=== PATIENT | female | born 1970 | race Hispanic/Latino ===

== ENCOUNTER 2018-02-25 15:04 | Emergency (ER) | payer SELFPAY ==
[2018-02-25 15:57] LABS: HEMATOCRIT 30.7 % (36-48); LYMPHOCYTES % (AUTO) 26.6 % (21.0-51.0); MEAN CORPUSCULAR HEMOGLOBIN 18.8 pg (27.0-33.0); MEAN CORPUSCULAR HGB CONC 30.2 g/dL (32.0-36.0); MEAN CORPUSCULAR VOLUME 62.4 fL (79-99); MONOCYTES % (AUTO) 6.8 % (3.0-13.0); NEUTROPHILS % (AUTO) 63.6 % (40.0-77.0); PLATELET COUNT (AUTO) 231 K/uL (130-400); RED BLOOD CELL COUNT(AUTO) 4.92 MIL/uL (4.00-5.50); RED CELL DISTRIBUTION WIDTH 19.2 % (11.0-15.5); WHITE BLOOD COUNT (AUTO) 4.8 K/uL (4.8-10.8)
[2018-02-25 15:58] LABS: APPEARANCE,URINE Clear (CLEAR); BILIRUBIN,URINE Negative (NEGATIVE); COLOR,URINE Yellow (YELLOW); GLUCOSE, URINE (UA) >=1000 mg/dL (NEGATIVE); KETONES,URINE Negative (NEGATIVE); LEUKOCYTE ESTERASE ,URINE Negative (NEGATIVE); NITRATE,URINE Negative (NEGATIVE); OCCULT BLOOD,URINE Moderate (NEGATIVE); PH,URINE 5.5 (5.0-8.0); PROTEIN,URINE Negative (NEGATIVE)
[2018-02-25 16:04] LABS: AMPHET/METH SCREEN,URINE NEGATIVE (NEGATIVE); BARBITURATE SCREEN, URINE NEGATIVE (NEGATIVE); BENZODIAZEPINES SCREEN,URINE NEGATIVE (NEGATIVE); CANNABINOID SCREEN,URINE NEGATIVE (NEGATIVE); COCAINE SCREEN,URINE NEGATIVE (NEGATIVE); OPIATE SCREEN,URINE NEGATIVE (NEGATIVE); PHENCYCLIDINE SCREEN,URINE NEGATIVE (NEGATIVE)
[2018-02-25 16:09] LABS: INR 0.94 (0.85-1.15); PARTIAL THROMBOPLASTIN TIME 23.1 SEC (26.3-35.5); PROTHROMBIN TIME 9.9 SEC (9.6-11.6)
[2018-02-25 16:17] LABS: BACTERIA,URINE None Seen /HPF (None Seen); RBC,URINE 26-50 /HPF (0-1); SQUAMOUS EPITHELIAL CELL,UR 0-2 /HPF (0-2); WBC,URINE 0-1 /HPF (0-1)
[2018-02-25 16:21] LABS: ALBUMIN 3.7 g/dL (3.5-5.0); BILIRUBIN,TOTAL 0.3 mg/dL (0.2-1.0); CREATINE KINASE MB 0.5 ng/mL (0.5-3.6); CREATININE 0.9 mg/dL (0.5-1.5); POTASSIUM 3.9 mmol/L (3.5-5.1); TOTAL PROTEIN, SERUM 7.3 g/dL (6.0-8.3)
[2018-02-25] MEDS ORDERED: SODIUM CHLORIDE 0.9% 1000ML 1,000 ML IV ONE (16:32)
[2018-02-25] MEDS ORDERED: INSULIN HUMULIN R 100 UNIT/ML 3ML ONE (16:33)
== END 2018-02-25 18:02 | disposition home or self-care (01) ==
LOC: EDH 15:04
DX: E11.65 Type 2 diabetes mellitus with hyperglycemia (principal); R42 Dizziness and giddiness; I10 Essential (primary) hypertension; Z90.49 Acquired absence of other specified parts of digestive tract; Z98.890 Other specified postprocedural states; Z87.891 Personal history of nicotine dependence
CPT/HCPCS: 36415; 80053; 80305; 81001; 82550; 82553; 82948; 84443; 84484; 85025; 85610; 85730; 93005; 96361; 96374; 99285; J1815; J7030

== ENCOUNTER 2019-10-26 11:32 | Inpatient (IN) | payer SELFPAY ==
[~2019-10-26] VITALS: Ht 157.5 cm; Wt 62.7 kg
[2019-10-26] MEDS ORDERED: ONDANSETRON HCL 4 MG/2 ML VIAL ONE (12:00)
[2019-10-26 12:20] LABS: BASOPHILS % (AUTO) 0.5 % (0.0-5.0); EOSINOPHILS % (AUTO) 1.8 % (0.0-8.0); HEMATOCRIT 32.3 % (36-48); LYMPHOCYTES % (AUTO) 15.9 % (21.0-51.0); MEAN CORPUSCULAR HEMOGLOBIN 19.1 pg (27.0-33.0); MEAN CORPUSCULAR HGB CONC 27.6 g/dL (32.0-36.0); MEAN CORPUSCULAR VOLUME 69.2 fL (79-99); MONOCYTES % (AUTO) 6.7 % (3.0-13.0); NEUTROPHILS % (AUTO) 74.9 % (40.0-77.0); PLATELET COUNT (AUTO) 202 K/uL (130-400); RED BLOOD CELL COUNT(AUTO) 4.67 MIL/uL (4.00-5.50); WHITE BLOOD COUNT (AUTO) 5.5 K/uL (4.8-10.8)
[2019-10-26 12:31] LABS: CREATININE 0.4 mg/dL (0.5-1.5); POTASSIUM 4.1 mmol/L (3.5-5.1)
[2019-10-26] MEDS ORDERED: FAMOTIDINE/PF 20 MG/2 ML VIAL IV ONE (12:33)
[2019-10-26] MEDS ORDERED: SODIUM CHLORIDE 0.9% 1000ML 1,000 ML IV ONE ×2 (12:34→17:16)
[2019-10-26 12:35] LABS: ALBUMIN 3.4 g/dL (3.5-5.0); BILIRUBIN,TOTAL 0.4 mg/dL (0.2-1.0); TOTAL PROTEIN, SERUM 7.2 g/dL (6.0-8.3)
[2019-10-26 12:38] LABS: APPEARANCE,URINE Clear (CLEAR); BILIRUBIN,URINE Negative (NEGATIVE); COLOR,URINE Yellow (YELLOW); GLUCOSE, URINE (UA) TRACE mg/dL (NEGATIVE); KETONES,URINE Trace mg/dL (NEGATIVE); LEUKOCYTE ESTERASE ,URINE Negative (NEGATIVE); NITRATE,URINE Negative (NEGATIVE); OCCULT BLOOD,URINE Trace (NEGATIVE); PROTEIN,URINE POS 2+ mg/dL (NEGATIVE)
[2019-10-26 12:46] LABS: AMPHET/METH SCREEN,URINE NEGATIVE (NEGATIVE); BARBITURATE SCREEN, URINE NEGATIVE (NEGATIVE); BENZODIAZEPINES SCREEN,URINE NEGATIVE (NEGATIVE); CANNABINOID SCREEN,URINE NEGATIVE (NEGATIVE); COCAINE SCREEN,URINE POSITIVE (NEGATIVE); OPIATE SCREEN,URINE NEGATIVE (NEGATIVE); PHENCYCLIDINE SCREEN,URINE NEGATIVE (NEGATIVE)
[2019-10-26 12:54] LABS: BACTERIA,URINE None Seen /HPF (None Seen); RBC,URINE 0-1 /HPF (0-1); WBC,URINE 0-1 /HPF (0-1)
[2019-10-26] MEDS ORDERED: HYOSCYAMINE SULFATE 0.125 MG TAB.SUBL SL ONE ×2 (14:10→14:11)
[2019-10-26] MEDS ORDERED: KETOROLAC TROMETHAMINE 30MG/ML ONE (15:30)
[2019-10-26] MEDS ORDERED: HYDRALAZINE HCL 20 MG/ML VIAL IV PRN (17:00)
[2019-10-26] MEDS ORDERED: HYDROCODONE/ACETAMINOPHEN 5/325 MG TAB PO PRN (17:00)
[2019-10-26] MEDS ORDERED: HYDROCODONE/ACETAMINOPHEN 5/325 MG TAB ONE (17:15)
[2019-10-26 18:30] VITALS: BP 167/94
[2019-10-26 20:00] VITALS: BP 150/92
[2019-10-26] MEDS: FAMOTIDINE/PF 20 MG/2 ML VIAL IV SCH (21:17)
[2019-10-26] MEDS: ZOSYN 3.375GM+NS 50ML 50 ML IV SCH (21:17)
[2019-10-26] MEDS: INSULIN GLARGINE 100 UNITS/ML 10 ML VIAL SQ SCH (21:17)
[2019-10-26] MEDS: HYDROCODONE/ACETAMINOPHEN 5/325 MG TAB PO PRN (21:22)
[2019-10-26] MEDS ORDERED: ONDANSETRON HCL 4 MG/2 ML VIAL IVP PRN (22:15)
[2019-10-26] MEDS: SODIUM CHLORIDE 0.9% 1000ML 1,000 ML IV SCH (23:11)
[2019-10-26] MEDS: HYDROMORPHONE HCL 2 MG/ML VIAL IVP PRN (23:12)
[2019-10-27 00:02] VITALS: BP 107/68
[2019-10-27 04:00] VITALS: BP 114/70
[2019-10-27] MEDS: ZOSYN 3.375GM+NS 50ML 50 ML IV SCH ×3 (04:22→21:13)
[2019-10-27] MEDS: HYDROMORPHONE HCL 2 MG/ML VIAL IVP PRN (04:27)
[2019-10-27 08:00] VITALS: BP 123/81
[2019-10-27] MEDS: FAMOTIDINE/PF 20 MG/2 ML VIAL IV SCH ×2 (08:53→21:13)
[2019-10-27] MEDS: SODIUM CHLORIDE 0.9% 1000ML 1,000 ML IV SCH (08:54)
[2019-10-27] MEDS: ENOXAPARIN SODIUM 40 MG/0.4 ML SYRINGE SQ SCH (08:54)
[2019-10-27] MEDS ORDERED: HYDROMORPHONE HCL 0.5 MG/0.5 ML ML ONE (09:02)
[2019-10-27 11:47] VITALS: BP 142/76
--- NOTE | 2019-10-27 13:01 | NUR ---
D/C PLAN CM spoke to pt regarding d/c planning. Pt is ind. lives alone. Denies having any DME at home. Pt given [employer] packet. Pt is on waiting list for [facility]. Plan to home. No needs verbalized or identified. Addendum: 10/27/19 at 1303 by REAGAN DA SILVA CM Amended: Links added.
--- NOTE | 2019-10-27 15:54 | NUR ---
Dr Cradnall evaluated the pt on bedside and educated about her condition and the possibility of getting surgery tomorrow. Pt understand. Dr. Crandall Also order to cancel HIDA scan, order Echo, notify hospitalist if ok for surgery base on the result of the echo or pt will need cardiology consult and give pain medication.
--- NOTE | 2019-10-27 15:57 | NUR ---
Dr Mora was notify about Dr. Chapin recommendations and agree. Also mention that if the echo looks normal it will be ok to proceed with surgery, if echo is abnormal Cardiology need to be consulted for clearance.
[2019-10-27 16:00] VITALS: BP 126/72
[2019-10-27] MEDS: HYDROMORPHONE HCL 0.5 MG/0.5 ML ML IVP PRN ×2 (16:10→21:30)
[2019-10-27 20:00] VITALS: BP 138/80
[2019-10-27] MEDS: INSULIN GLARGINE 100 UNITS/ML 10 ML VIAL SQ SCH (21:07)
[2019-10-28] VITALS (7 sets, daily range): BP systolic 121–149; BP diastolic 67–82
[2019-10-28] MEDS: ZOSYN 3.375GM+NS 50ML 50 ML IV SCH ×3 (05:18→21:42)
[2019-10-28] MEDS: HYDROMORPHONE HCL 0.5 MG/0.5 ML ML IVP PRN ×4 (08:26→22:49)
[2019-10-28] MEDS: FAMOTIDINE/PF 20 MG/2 ML VIAL IV SCH ×2 (08:27→21:42)
[2019-10-28] MEDS: ENOXAPARIN SODIUM 40 MG/0.4 ML SYRINGE SQ SCH ×2 (08:27→09:00)
[2019-10-28 10:11] LABS: HEMATOCRIT 30.1 % (36-48); MEAN CORPUSCULAR HEMOGLOBIN 19.2 pg (27.0-33.0); MEAN CORPUSCULAR HGB CONC 27.2 g/dL (32.0-36.0); MEAN CORPUSCULAR VOLUME 70.5 fL (79-99); PLATELET COUNT (AUTO) 144 K/uL (130-400); RED BLOOD CELL COUNT(AUTO) 4.27 MIL/uL (4.00-5.50); RED CELL DISTRIBUTION WIDTH 21.9 % (11.0-15.5); WHITE BLOOD COUNT (AUTO) 3.7 K/uL (4.8-10.8)
[2019-10-28 10:17] LABS: HEMOGLOBIN A1C 9.7 % (4.0-6.0)
[2019-10-28 10:22] LABS: ALBUMIN 2.9 g/dL (3.5-5.0); BILIRUBIN,TOTAL 0.3 mg/dL (0.2-1.0); CREATININE 0.5 mg/dL (0.5-1.5); POTASSIUM 3.2 mmol/L (3.5-5.1); TOTAL PROTEIN, SERUM 6.3 g/dL (6.0-8.3)
[2019-10-28] MEDS ORDERED: LIDOCAINE HCL-MPF 1% 2ML VIAL IV PRN ×2 (12:00→19:15)
[2019-10-28] MEDS ORDERED: POTASSIUM CHLORIDE 20MEQ/100ML 100 ML IV PRN ×2 (12:00→19:15)
[2019-10-28] MEDS ORDERED: POTASSIUM CHLORIDE 10% ELIXIR 20 MEQ/15 ML UDCUP PO PRN (19:15)
[2019-10-28] MEDS: INSULIN GLARGINE 100 UNITS/ML 10 ML VIAL SQ SCH (21:41)
[2019-10-28] MEDS: POTASSIUM CHLORIDE 20 MEQ ERTAB PO PRN (21:50)
[2019-10-29 03:44] VITALS: BP 140/77
[2019-10-29 05:41] LABS: BASOPHILS % (AUTO) 0.3 % (0.0-5.0); EOSINOPHILS % (AUTO) 1.5 % (0.0-8.0); HEMATOCRIT 29.3 % (36-48); MEAN CORPUSCULAR HEMOGLOBIN 19.1 pg (27.0-33.0); MEAN CORPUSCULAR HGB CONC 27.3 g/dL (32.0-36.0); MEAN CORPUSCULAR VOLUME 69.9 fL (79-99); MONOCYTES % (AUTO) 12.2 % (3.0-13.0); NEUTROPHILS % (AUTO) 50.7 % (40.0-77.0); PLATELET COUNT (AUTO) 146 K/uL (130-400); RED BLOOD CELL COUNT(AUTO) 4.19 MIL/uL (4.00-5.50); RED CELL DISTRIBUTION WIDTH 21.7 % (11.0-15.5); WHITE BLOOD COUNT (AUTO) 3.3 K/uL (4.8-10.8)
[2019-10-29] MEDS: ZOSYN 3.375GM+NS 50ML 50 ML IV SCH ×3 (05:45→20:27)
[2019-10-29 06:00] LABS: ALBUMIN 2.7 g/dL (3.5-5.0); BILIRUBIN,TOTAL 0.3 mg/dL (0.2-1.0); CREATININE 0.4 mg/dL (0.5-1.5); POTASSIUM 3.3 mmol/L (3.5-5.1)
[2019-10-29] MEDS: POTASSIUM CHLORIDE 20 MEQ ERTAB PO PRN ×3 (06:33→17:44)
[2019-10-29] MEDS: HYDROMORPHONE HCL 0.5 MG/0.5 ML ML IVP PRN ×4 (07:32→21:35)
[2019-10-29 08:52] VITALS: BP 144/92
[2019-10-29] MEDS: FAMOTIDINE/PF 20 MG/2 ML VIAL IV SCH ×2 (12:00→20:27)
[2019-10-29] MEDS: ENOXAPARIN SODIUM 40 MG/0.4 ML SYRINGE SQ SCH (12:00)
[2019-10-29 12:23] VITALS: BP 128/79
--- NOTE | 2019-10-29 15:48 | NUR ---
CARDIOLOGY CONSULT DR. ALVAREZ WITH CARDIOLOGY AT BEDSIDE TO ASSESS AND TALK TO PT. NEW ORDERS RECEIVED
[2019-10-29 16:58] VITALS: BP 126/84
[2019-10-29 20:00] VITALS: BP 158/93
[2019-10-29] MEDS ORDERED: GLUCAGON 1MG KIT 1 MG ML IM PRN (20:00)
[2019-10-29] MEDS ORDERED: DEXTROSE 50%-WATER 50 ML DISP.SYRIN IV PRN (20:00)
[2019-10-29] MEDS: INSULIN HUMULIN R 100 UNIT/ML 3ML SQ SCH (20:23)
[2019-10-29] MEDS: INSULIN GLARGINE 100 UNITS/ML 10 ML VIAL SQ SCH (20:26)
[2019-10-29 23:46] VITALS: BP 138/81
[2019-10-30] MEDS: HYDROMORPHONE HCL 0.5 MG/0.5 ML ML IVP PRN ×4 (02:48→19:39)
[2019-10-30 03:45] VITALS: BP 142/77
[2019-10-30] MEDS: ZOSYN 3.375GM+NS 50ML 50 ML IV SCH ×3 (04:10→19:38)
[2019-10-30] MEDS: INSULIN HUMULIN R 100 UNIT/ML 3ML SQ SCH ×4 (05:51→20:25)
[2019-10-30 06:08] LABS: BASOPHILS % (AUTO) 0.7 % (0.0-5.0); EOSINOPHILS % (AUTO) 1.7 % (0.0-8.0); HEMATOCRIT 29.3 % (36-48); LYMPHOCYTES % (AUTO) 32.5 % (21.0-51.0); MEAN CORPUSCULAR HEMOGLOBIN 19.6 pg (27.0-33.0); MEAN CORPUSCULAR HGB CONC 28.3 g/dL (32.0-36.0); MEAN CORPUSCULAR VOLUME 69.1 fL (79-99); MONOCYTES % (AUTO) 11.9 % (3.0-13.0); NEUTROPHILS % (AUTO) 53.2 % (40.0-77.0); PLATELET COUNT (AUTO) 129 K/uL (130-400); RED BLOOD CELL COUNT(AUTO) 4.24 MIL/uL (4.00-5.50); RED CELL DISTRIBUTION WIDTH 21.3 % (11.0-15.5)
[2019-10-30 06:28] LABS: ALBUMIN 2.7 g/dL (3.5-5.0); BILIRUBIN,TOTAL 0.2 mg/dL (0.2-1.0); CREATININE 0.4 mg/dL (0.5-1.5); POTASSIUM 3.8 mmol/L (3.5-5.1); TOTAL PROTEIN, SERUM 6.1 g/dL (6.0-8.3)
[2019-10-30 07:00] VITALS: BP 137/78
[2019-10-30] MEDS: FAMOTIDINE/PF 20 MG/2 ML VIAL IV SCH ×2 (08:44→19:38)
[2019-10-30] MEDS: ENOXAPARIN SODIUM 40 MG/0.4 ML SYRINGE SQ SCH (08:46)
[2019-10-30 11:00] VITALS: BP 142/81
[2019-10-30] MEDS ORDERED: IOHEXOL 350 MG/ML 100ML INFUS..BTL IV ONE (11:36)
--- NOTE | 2019-10-30 15:00 | NUR ---
NOTIFY CLEO HOLMAN CALLED AND LEFT MESSAGE WITH CLEO HOLMAN REFERENCE TODAY'S RESULTS OF CT ANGIO. LEFT CALL BACK # [phone].
[2019-10-30 16:00] VITALS: BP 152/90
[2019-10-30] MEDS: INSULIN GLARGINE 100 UNITS/ML 10 ML VIAL SQ SCH (19:45)
[2019-10-30 20:00] VITALS: BP 152/90
[2019-10-31] VITALS: BP 137/76
[2019-10-31] MEDS: HYDROMORPHONE HCL 0.5 MG/0.5 ML ML IVP PRN ×4 (02:33→20:06)
[2019-10-31 04:00] VITALS: BP 146/84
[2019-10-31] MEDS: ZOSYN 3.375GM+NS 50ML 50 ML IV SCH ×3 (04:05→19:43)
[2019-10-31 05:22] LABS: BASOPHILS % (AUTO) 0.6 % (0.0-5.0); HEMATOCRIT 30.3 % (36-48); LYMPHOCYTES % (AUTO) 29.7 % (21.0-51.0); MEAN CORPUSCULAR HEMOGLOBIN 19.2 pg (27.0-33.0); MEAN CORPUSCULAR HGB CONC 28.1 g/dL (32.0-36.0); MEAN CORPUSCULAR VOLUME 68.6 fL (79-99); MONOCYTES % (AUTO) 10.1 % (3.0-13.0); NEUTROPHILS % (AUTO) 57.3 % (40.0-77.0); PLATELET COUNT (AUTO) 135 K/uL (130-400); RED BLOOD CELL COUNT(AUTO) 4.42 MIL/uL (4.00-5.50); RED CELL DISTRIBUTION WIDTH 21.5 % (11.0-15.5); WHITE BLOOD COUNT (AUTO) 3.5 K/uL (4.8-10.8)
[2019-10-31 05:32] LABS: ALBUMIN 2.7 g/dL (3.5-5.0); BILIRUBIN,TOTAL 0.3 mg/dL (0.2-1.0); CREATININE 0.4 mg/dL (0.5-1.5); POTASSIUM 3.5 mmol/L (3.5-5.1); TOTAL PROTEIN, SERUM 5.9 g/dL (6.0-8.3)
[2019-10-31] MEDS: POTASSIUM CHLORIDE 20 MEQ ERTAB PO PRN ×2 (06:03→15:34)
[2019-10-31] MEDS: INSULIN HUMULIN R 100 UNIT/ML 3ML SQ SCH ×4 (06:05→20:07)
[2019-10-31 08:00] VITALS: BP 140/75
[2019-10-31] MEDS: FAMOTIDINE/PF 20 MG/2 ML VIAL IV SCH ×2 (08:24→19:43)
[2019-10-31] MEDS: ENOXAPARIN SODIUM 40 MG/0.4 ML SYRINGE SQ SCH (08:27)
[2019-10-31 12:00] VITALS: BP 146/87
[2019-10-31 16:00] VITALS: BP 158/86
[2019-10-31] MEDS: INSULIN GLARGINE 100 UNITS/ML 10 ML VIAL SQ SCH (19:49)
[2019-10-31 20:00] VITALS: BP 148/78
[2019-11-01] VITALS (25 sets, daily range): BP systolic 113–158; BP diastolic 68–83
[2019-11-01] MEDS: HYDROMORPHONE HCL 0.5 MG/0.5 ML ML IVP PRN ×4 (02:00→21:18)
[2019-11-01] MEDS: ZOSYN 3.375GM+NS 50ML 50 ML IV SCH ×3 (06:10→21:11)
[2019-11-01] MEDS: INSULIN HUMULIN R 100 UNIT/ML 3ML SQ SCH ×4 (06:12→20:48)
--- NOTE | 2019-11-01 06:40 | NUR ---
Jamel Worthington, cardiology, spoke with the patient. from his cardiology standpoint, patient can have surgery. since patient had bleeding in the urine, he recommends the surgeon to speak with GI doctor before any surgery is done.
--- NOTE | 2019-11-01 06:51 | NUR ---
paged Dr. Chapin twice. pending call back.
[2019-11-01] MEDS: ENOXAPARIN SODIUM 40 MG/0.4 ML SYRINGE SQ SCH (08:21)
[2019-11-01] MEDS: METOPROLOL TARTRATE 25 MG TAB PO SCH ×2 (09:09→21:11)
[2019-11-01] MEDS: FAMOTIDINE/PF 20 MG/2 ML VIAL IV SCH ×2 (09:09→21:10)
[2019-11-01] MEDS ORDERED: ROCURONIUM 10MG/1ML SYR 10 MG/ML ML ONE (11:04)
[2019-11-01] MEDS ORDERED: LIDOCAINE PF 2% 5ML ABBOJECT ONE (11:04)
[2019-11-01] MEDS ORDERED: MIDAZOLAM HCL 1 MG/ML 2ML VIAL ONE (11:04)
[2019-11-01] MEDS ORDERED: PROPOFOL 10 MG/ML 20ML VIAL IV ONE (11:04)
[2019-11-01] MEDS ORDERED: FENTANYL CITRATE PF 50 MCG/1 ML 2ML VIAL ONE ×2 (11:05→11:47)
[2019-11-01] MEDS ORDERED: BUPIVACAINE/PF 0.5% 30ML VIAL ONE (11:30)
[2019-11-01] MEDS ORDERED: NEOSTIGMINE 5MG/5ML SYR IV ONE (11:37)
[2019-11-01] MEDS ORDERED: ONDANSETRON HCL 4 MG/2 ML VIAL ONE (11:37)
[2019-11-01] MEDS ORDERED: DEXAMETHASONE SOD PHOSPHATE 10MG/ML 1ML VIAL ONE (11:37)
[2019-11-01] MEDS ORDERED: GLYCOPYRROLATE 1 MG/5 ML SYRINGE ONE (11:37)
[2019-11-01] MEDS ORDERED: EPHEDRINE SULFATE 50 MG/ML AMPULE ONE (11:40)
[2019-11-01] MEDS: HYDROCODONE/ACETAMINOPHEN 5/325 MG TAB PO PRN (18:50)
[2019-11-01] MEDS: INSULIN GLARGINE 100 UNITS/ML 10 ML VIAL SQ SCH (20:49)
[2019-11-02] MEDS: HYDROMORPHONE HCL 0.5 MG/0.5 ML ML IVP PRN ×3 (01:22→13:06)
[2019-11-02 04:25] VITALS: BP 138/78
[2019-11-02] MEDS: ZOSYN 3.375GM+NS 50ML 50 ML IV SCH ×3 (05:10→21:15)
[2019-11-02 05:39] LABS: BASOPHILS % (AUTO) 0.3 % (0.0-5.0); EOSINOPHILS % (AUTO) 0.1 % (0.0-8.0); HEMATOCRIT 34.9 % (36-48); LYMPHOCYTES % (AUTO) 16.8 % (21.0-51.0); MEAN CORPUSCULAR HEMOGLOBIN 19.1 pg (27.0-33.0); MEAN CORPUSCULAR HGB CONC 27.5 g/dL (32.0-36.0); MEAN CORPUSCULAR VOLUME 69.5 fL (79-99); MONOCYTES % (AUTO) 8.4 % (3.0-13.0); NEUTROPHILS % (AUTO) 74.2 % (40.0-77.0); PLATELET COUNT (AUTO) 197 K/uL (130-400); RED BLOOD CELL COUNT(AUTO) 5.02 MIL/uL (4.00-5.50); RED CELL DISTRIBUTION WIDTH 21.9 % (11.0-15.5); WHITE BLOOD COUNT (AUTO) 9.5 K/uL (4.8-10.8)
[2019-11-02 05:53] LABS: CREATININE 0.5 mg/dL (0.5-1.5); POTASSIUM 3.9 mmol/L (3.5-5.1)
[2019-11-02] MEDS: INSULIN HUMULIN R 100 UNIT/ML 3ML SQ SCH ×4 (06:22→20:33)
[2019-11-02 08:46] VITALS: BP 144/80
[2019-11-02] MEDS: FAMOTIDINE/PF 20 MG/2 ML VIAL IV SCH ×2 (09:11→21:05)
[2019-11-02] MEDS: METOPROLOL TARTRATE 25 MG TAB PO SCH ×2 (09:12→21:05)
[2019-11-02] MEDS: HYDROCODONE/ACETAMINOPHEN 5/325 MG TAB PO PRN (09:12)
[2019-11-02] MEDS: ENOXAPARIN SODIUM 40 MG/0.4 ML SYRINGE SQ SCH (09:12)
[2019-11-02 09:19] LABS: BILIRUBIN,DIRECT 0.1 mg/dL (0.0-0.3); BILIRUBIN,TOTAL 0.4 mg/dL (0.2-1.0)
[2019-11-02 11:00] VITALS: BP 162/91
[2019-11-02 16:00] VITALS: BP 133/76
[2019-11-02] MEDS ORDERED: ACETAMINOPHEN-CODEINE 300/30MG TAB PO PRN (16:30)
[2019-11-02] MEDS: KETOROLAC TROMETHAMINE 15MG/ML IV PRN ×2 (16:51→21:14)
[2019-11-02 20:05] VITALS: BP 157/88
[2019-11-02] MEDS ORDERED: INSULIN GLARGINE 100 UNITS/ML 10 ML VIAL SQ SCH (21:00)
[2019-11-02 23:13] VITALS: BP 146/80
[2019-11-03 03:49] VITALS: BP 149/88
[2019-11-03] MEDS: KETOROLAC TROMETHAMINE 15MG/ML IV PRN (04:27)
[2019-11-03] MEDS: ZOSYN 3.375GM+NS 50ML 50 ML IV SCH (04:29)
[2019-11-03] MEDS: INSULIN HUMULIN R 100 UNIT/ML 3ML SQ SCH ×2 (05:56→12:30)
[2019-11-03 06:03] LABS: BASOPHILS % (AUTO) 0.6 % (0.0-5.0); EOSINOPHILS % (AUTO) 0.4 % (0.0-8.0); HEMATOCRIT 28.9 % (36-48); LYMPHOCYTES % (AUTO) 23.1 % (21.0-51.0); MEAN CORPUSCULAR HEMOGLOBIN 19.5 pg (27.0-33.0); MEAN CORPUSCULAR HGB CONC 28.4 g/dL (32.0-36.0); MEAN CORPUSCULAR VOLUME 68.8 fL (79-99); MONOCYTES % (AUTO) 11.6 % (3.0-13.0); NEUTROPHILS % (AUTO) 64.1 % (40.0-77.0); PLATELET COUNT (AUTO) 137 K/uL (130-400); RED CELL DISTRIBUTION WIDTH 21.5 % (11.0-15.5); WHITE BLOOD COUNT (AUTO) 4.9 K/uL (4.8-10.8)
[2019-11-03 06:36] LABS: CREATININE 0.4 mg/dL (0.5-1.5); POTASSIUM 3.6 mmol/L (3.5-5.1)
[2019-11-03 07:58] VITALS: BP 141/81
[2019-11-03] MEDS: METOPROLOL TARTRATE 25 MG TAB PO SCH (09:02)
[2019-11-03] MEDS: FAMOTIDINE/PF 20 MG/2 ML VIAL IV SCH (09:02)
[2019-11-03] MEDS: ENOXAPARIN SODIUM 40 MG/0.4 ML SYRINGE SQ SCH (09:02)
[2019-11-03] MEDS ORDERED: KETO10TA2 PO (11:18)
[2019-11-03] MEDS ORDERED: CEPH-578 PO (11:18)
[2019-11-03 11:39] VITALS: BP 151/82
--- NOTE | 2019-11-03 13:00 | NUR ---
DISCHARGE DISCHARGE INSTRUCTIONS GIVEN TO PATIENT, VERBALIZED UNDERSTANDING. EDUCATED ON KEEPING INCISION CLEAN AND DRY, PRESCRIPTIONS GIVEN. IV DISCONTINUED.
== END 2019-11-03 13:04 | disposition home or self-care (01) | DRG 418 ==
LOC: EDH 11:32 → OBSVTOIN 11:33 → 3AH 11:33
PROVIDERS: ADMIT Internal Medicine; ATTEND Internal Medicine
PROC: B2111ZZ Fluoroscopy of Multiple Coronary Arteries using Low Osmolar Contrast (ICD-10-PCS; 2019-10-31)
PROC: 0FT44ZZ Resection of Gallbladder, Percutaneous Endoscopic Approach (ICD-10-PCS; principal; 2019-11-01 11:45)
DX: K80.62 Calculus of gallbladder and bile duct with acute cholecystitis without obstruction (principal); I50.22 Chronic systolic (congestive) heart failure; F14.10 Cocaine abuse, uncomplicated; D64.9 Anemia, unspecified; E11.9 Type 2 diabetes mellitus without complications; I10 Essential (primary) hypertension; Z82.49 Family history of ischemic heart disease and other diseases of the circulatory system; Z87.11 Personal history of peptic ulcer disease
CPT/HCPCS: 36415; 74176; 75574; 76705; 80048; 80053; 80305; 81001; 82150; 82247; 82248; 82948; 83036; 83690; 84702; 85025; 85027; 93306; G0378; J0360; J1100; J1170; J1650; J1815; J1885; J2001; J2250; J2405; J2543; J2704; J2710; J3010; J3480; J3490; J7030; Q9967

== ENCOUNTER 2023-09-26 17:29 | Emergency (ER) | payer SELFPAY ==
[~2023-09-26] VITALS: Ht 165.1 cm; Wt 63.5 kg
[~2023-09-26 17:29] MED LIST: NPH,100V11 SQ
[2023-09-26 18:13] LABS: BASOPHILS # (AUTO) 0.03 K/uL (0.00-0.20); BASOPHILS % (AUTO) 0.4 % (0.0-5.0); EOSINOPHILS # (AUTO) 0.01 K/uL (0.00-0.70); EOSINOPHILS % (AUTO) 0.1 % (0.0-8.0); HEMATOCRIT 35.8 % (36-48); IMMATURE GRANULOCYTE ABSOLUTE 0.04 K/uL (0-1); LYMPHOCYTES # (AUTO) 1.1 K/uL (1.0-4.8); LYMPHOCYTES % (AUTO) 14.6 % (21.0-51.0); MEAN CORPUSCULAR HGB CONC 34.4 g/dL (32.0-36.0); MEAN CORPUSCULAR VOLUME 78.7 fL (79-99); MONOCYTES # (AUTO) 0.2 K/uL (0.1-1.0); MONOCYTES % (AUTO) 2.7 % (3.0-13.0); NEUTROPHILS % (AUTO) 81.7 % (40.0-77.0); PLATELET COUNT (AUTO) 204 K/uL (130-400); RED BLOOD CELL COUNT(AUTO) 4.55 MIL/uL (4.00-5.50); RED CELL DISTRIBUTION WIDTH 14.6 % (11.0-15.5); WHITE BLOOD COUNT (AUTO) 7.4 K/uL (4.8-10.8)
[2023-09-26 18:25] LABS: CREATININE 0.7 mg/dL (0.5-1.5); POTASSIUM 3.6 mmol/L (3.5-5.1)
[2023-09-26 18:35] LABS: ALBUMIN 3.3 g/dL (3.5-5.0); BILIRUBIN,TOTAL 0.4 mg/dL (0.2-1.0); TOTAL PROTEIN, SERUM 7.9 g/dL (6.0-8.3)
[2023-09-26] MEDS ORDERED: LISI10TA24 PO (18:55)
[2023-09-26] MEDS ORDERED: 0.9%NACL 1000ML 1,000 ML IV ONE (20:30)
[2023-09-26] MEDS ORDERED: MORPHINE 4 MG SYG IVP ONE ×2 (20:30→23:00)
[2023-09-26] MEDS ORDERED: METOCLOPRAMIDE 10 MG/2 ML VIAL IVP ONE (20:30)
[2023-09-26] MEDS ORDERED: IOHEXOL 350 MG/ML 100ML INFUS..BTL IV ONE ×2 (21:25→21:38)
[2023-09-26 22:49] LABS: ADD UA MICROSCOPIC YES; APPEARANCE,URINE CLOUDY (CLEAR); BILIRUBIN,URINE NEGATIVE (NEGATIVE); COLOR,URINE LIGHT-YELLOW (YELLOW); GLUCOSE, URINE (UA) >=1000 mg/dL (NEGATIVE); KETONES,URINE 20 mg/dL (NEGATIVE); LEUKOCYTE ESTERASE ,URINE 250 Leu/uL (NEGATIVE); NITRATE,URINE NEGATIVE (NEGATIVE); OCCULT BLOOD,URINE MODERATE (NEGATIVE); PROTEIN,URINE 300 mg/dL (NEGATIVE); UROBILINOGEN,URINE 0.2 mg/dL (0.2-1.0)
[2023-09-26 22:56] LABS: BACTERIA,URINE MOD /HPF (None Seen); MUCUS,URINE RARE LPF (None Seen); SQUAMOUS EPITHELIAL CELL,UR RARE /HPF (0-2); WBC CLUMP MOD /HPF (0-1); WBC,URINE 51-100 /HPF (0-1)
[2023-09-26] MEDS ORDERED: CEFTRIAXONE 2GM VIAL IVPB ONE (23:00)
[2023-09-26] MEDS ORDERED: LABETALOL 20MG VIAL IV ONE (23:00)
[2023-09-26] MEDS ORDERED: METO-296 PO (23:43)
[2023-09-26] MEDS ORDERED: CEPH500B PO (23:43)
[2023-09-26] MEDS ORDERED: PHEN-847 PO (23:43)
[2023-09-27 00:36] VITALS: BP 156/74; PULSE 101; RESP 18; O2SAT 99
== END 2023-09-27 00:37 | disposition home or self-care (01) ==
LOC: EDH 17:29
DX: N39.0 Urinary tract infection, site not specified (principal); I16.0 Hypertensive urgency; I10 Essential (primary) hypertension; E11.9 Type 2 diabetes mellitus without complications; Z79.899 Other long term (current) drug therapy
CPT/HCPCS: 99285; 74178; 96365; 96361; 96375; 84484; 80053; 83690; 85025; 87077; 87088; 87186; 81001; 36415; 93005; J0696; J2270; J2765; Q9967 ×2